=== PATIENT | female | born 1990 | race Caucasian/White ===

== ENCOUNTER 2019-07-07 22:08 | Emergency (ER) | payer BC ==
[2019-07-07 22:32] LABS: BASOPHILS % (AUTO) 0.8 % (0.0-5.0); EOSINOPHILS % (AUTO) 4.8 % (0.0-8.0); HEMATOCRIT 38.4 % (36-48); LYMPHOCYTES % (AUTO) 28.9 % (21.0-51.0); MEAN CORPUSCULAR HEMOGLOBIN 30.8 pg (27.0-33.0); MEAN CORPUSCULAR HGB CONC 33.9 g/dL (32.0-36.0); MONOCYTES % (AUTO) 7.9 % (3.0-13.0); NEUTROPHILS % (AUTO) 57.3 % (40.0-77.0); PLATELET COUNT (AUTO) 225 K/uL (130-400); RED BLOOD CELL COUNT(AUTO) 4.22 MIL/uL (4.00-5.50); RED CELL DISTRIBUTION WIDTH 12.7 % (11.0-15.5); WHITE BLOOD COUNT (AUTO) 10.5 K/uL (4.8-10.8)
[2019-07-07 22:37] LABS: APPEARANCE,URINE Clear (CLEAR); BILIRUBIN,URINE Negative (NEGATIVE); COLOR,URINE Yellow (YELLOW); GLUCOSE, URINE (UA) Negative (NEGATIVE); KETONES,URINE Negative (NEGATIVE); LEUKOCYTE ESTERASE ,URINE Trace (NEGATIVE); NITRATE,URINE Negative (NEGATIVE); OCCULT BLOOD,URINE Negative (NEGATIVE); PROTEIN,URINE Negative (NEGATIVE); UROBILINOGEN,URINE 0.2 mg/dL (0.2-1.0)
[2019-07-07 22:40] LABS: HCG,QUAL RESULT NEGATIVE (NEGATIVE)
[2019-07-07 22:50] LABS: AMPHET/METH SCREEN,URINE NEGATIVE (NEGATIVE); BARBITURATE SCREEN, URINE NEGATIVE (NEGATIVE); BENZODIAZEPINES SCREEN,URINE NEGATIVE (NEGATIVE); CANNABINOID SCREEN,URINE NEGATIVE (NEGATIVE); COCAINE SCREEN,URINE NEGATIVE (NEGATIVE); OPIATE SCREEN,URINE NEGATIVE (NEGATIVE); PHENCYCLIDINE SCREEN,URINE NEGATIVE (NEGATIVE)
[2019-07-07 22:56] LABS: BACTERIA,URINE Rare /HPF (None Seen); RBC,URINE 0-1 /HPF (0-1)
[2019-07-07 22:57] LABS: POTASSIUM 4.1 mmol/L (3.5-5.1)
[2019-07-07 23:01] LABS: ALBUMIN 4.2 g/dL (3.5-5.0); BILIRUBIN,TOTAL 0.1 mg/dL (0.2-1.0); TOTAL PROTEIN, SERUM 7.3 g/dL (6.0-8.3)
== END 2019-07-07 23:54 | disposition home or self-care (01) ==
LOC: EDH 22:08
DX: R07.89 Other chest pain (principal); R55 Syncope and collapse; F32.9 Major depressive disorder, single episode, unspecified; Z88.0 Allergy status to penicillin; Z72.0 Tobacco use
CPT/HCPCS: 36415; 71045; 80053; 80305; 81001; 81025; 82550; 84484; 85025; 93005

== ENCOUNTER 2019-08-19 14:51 | Observation (INO) | payer BC ==
[~2019-08-19] VITALS: Ht 167.6 cm; Wt 89.1 kg
[2019-08-19] MEDS ORDERED: ACETAMINOPHEN EXTRA STRENGTH 500 MG TABLET ONE (15:53)
[2019-08-19] MEDS ORDERED: KETOROLAC TROMETHAMINE 30MG/ML ONE (16:25)
[2019-08-19] MEDS ORDERED: IOHEXOL-350 75 ML VIAL IV ONE (17:11)
[2019-08-19] MEDS ORDERED: SUCRALFATE 1 GM TABLET ONE (18:01)
[2019-08-19] MEDS ORDERED: FAMOTIDINE/PF 20 MG/2 ML VIAL IV ONE (18:01)
[2019-08-19] MEDS ORDERED: MORPHINE SULFATE 4 MG/1ML SYG ONE (19:27)
[2019-08-20] MEDS ORDERED: LACTATED RINGERS 1000ML 1,000 ML IV SCH (00:45)
[2019-08-20] MEDS ORDERED: KETOROLAC TROMETHAMINE 15MG/ML IV PRN (00:45)
[2019-08-20] MEDS ORDERED: ONDANSETRON HCL 4 MG/2 ML VIAL IV PRN (00:45)
[2019-08-20] MEDS ORDERED: NITROGLYCERIN 0.4 MG SL TAB SL PRN (01:00)
[2019-08-20] MEDS ORDERED: KETOROLAC TROMETHAMINE 15MG/ML ONE (01:01)
[2019-08-20] MEDS ORDERED: LACTATED RINGERS 1000ML 1,000 ML IV ONE (01:28)
[2019-08-20 02:42] VITALS: BP 145/79; PULSE 74; RESP 18; TEMP 98.2
[2019-08-20] MEDS ORDERED: LORAZEPAM 2 MG/ML 1 ML VIAL ONE (04:21)
[2019-08-20] MEDS ORDERED: LORAZEPAM 2 MG/ML 1 ML VIAL IVP ONE (04:30)
[2019-08-20 08:30] VITALS: BP 120/71; PULSE 82; RESP 18; TEMP 98
[2019-08-20] MEDS ORDERED: FAMOTIDINE/PF 20 MG/2 ML VIAL IV SCH (09:00)
[2019-08-20] MEDS ORDERED: ASPIRIN 81MG TAB.CHEW PO SCH (09:00)
[2019-08-20 13:40] VITALS: BP 123/72; PULSE 72; RESP 20; TEMP 97.8
--- NOTE | 2019-08-20 14:13 | NUR ---
RD NOTIFICATION Pt admitted with atypical chest pain, abdominal pain. Pt Hx of GERD, depression, 17mos. , breast feeding. Upon visit, Pt reports return of appetite and ate two peanut butter sandwiches from. Pt reports wt loss possibly d/t headaches, not feeling well, decreased appetite. Diet order advanced to [facility]. Pt with painful gassiness, requesting med at time of visit. Pt Obesity Class I (BMI 31.7). Pt with no desire to re-gain wt. Recommend continue GI Soft/[place] Diet order. RD to monitor for signs of malnutrition and PO status. Please notify as additional nutrition concerns arise. Thank you. Addendum: 08/20/19 at 1419 [address] GUZMÁN RD RD Amended: Links added.
[2019-08-20] MEDS ORDERED: PANTOPRAZOLE SODIUM 40 MG TABLET.DR PO SCH (15:00)
[2019-08-20] MEDS ORDERED: PANTOPRAZOLE SODIUM 40 MG TABLET.DR ONE (15:02)
[2019-08-20] MEDS ORDERED: CALCIUM CARBON 500MG CHEW TAB ONE (15:46)
--- NOTE | 2019-08-20 15:55 | NUR ---
PT COMPLAINING OF LEFT SIDED CHEST PAIN THAT RADIATES TO THE MID EPIGASTRIC REGION, PATIENT STATES SHE HAS HAD HAIM TYPE OF PAIN BEFORE WHICH USUALLY RESOLVES WITH A TUMS. CALLED DR. OCASIO STATES OKAY TO ORDER TUMS. DO EKG AND NOTIFY ME OF RESULTS.
--- NOTE | 2019-08-20 16:10 | NUR ---
EKG RESULTS GIVEN TO DR. OCASIO STATES THEY LOOK NORMAL. DR. OCASIO SPOKE WITH PATIENT FOR A CARDIOLOGY CONSULT, PATIENT REFUSED CARDIOLOGY CONSULT AND WISHES TO GO HOME SINCE TUMS HAVE HELP WITH THE RELIEF OF CHEST PAIN.
--- NOTE | 2019-08-20 16:58 | NUR ---
CM NOTE AT BEDSIDE FOR DISCHARGE PLANNING EARLIER. PT VERY TEARFUL, STATES NEVER AWAY FROM HER DAUGHTER - 15 MOS OLD, BREAST FEEDING- STATES MOVES AROUND A LOT- EVERY FEW MONTHS DUE TO HUSBANDS EMPLOYMENT. STATES FMAIY IN [place] AND [place]. STATES NO FRIEND IN AREA, STATED NO PCP. INDP, NO DME, NO HOME PROGRAM. BEING DISCHARGED BECAUSE SHE IS DECLINING FURTHER WORK UP . ENCOURAGE TO MAINTAIN COMUNICATION WITH FRIENDS AND RELATIVES DESPITE TRANSITORY LIFE STYLE, AND SEEK SUPPORT SYSTEM IN THE TOWNS THEY MOVE TO Addendum: 08/20/19 at 1701 by YESENIA CAMPOS RN CM Amended: Links added.
[2019-08-20 17:17] VITALS: BP 121/67; PULSE 67; RESP 18; TEMP 98
--- NOTE | 2019-08-20 19:40 | NUR ---
PT D/C HOME USING TEACH BACK TECHNIQUE RE; FOLLOW UP WITH YOUR PRIMARY DOCTOR IN 2-4 DAYS. FOR TRANSITION OF CARE. FOLLOW UP WITH DR. ISRAEL IN 1-2 WEEKS. CALL PHONE [phone]. NEUROLOGIST. CALL [phone] IF SHORNTESS OF BREATH, CHEST PAIN, DIZZINESS, CONFUSION, NUMBNESS TO ONE SIDE OF YOUR BODY, FACIAL DROOP. WE CHECKED YOU HEART ENZYMES THREE TIMES AND THERE WAS NO SIGNS OF HEART, ATTACK, , WE CHECKED CT OF THE ABDOMEN WHICH WAS NORMAL, , WE DID MRI OF THE BRAIN FOR YOUR HEADACHES AND IT WAS NORMAL, , > D/C MEDICATION INSTRUCTION: <CONTINUE WITH YOUR ACID REFLUX MEDICATIONS PRESCRIBED BY DR. KIMBALL, , SEE YOUR PCP ON FRIDAY> DC FOLLOW UP: <PLEASE FOLLOW UP WITH YOUR PCP ON FRIDAY FOR FOLLOW UP. IF YOU CONTINUE TO, HAVE CHEST PAIN, ASK FOR REFERRAL FOR A PRODUCE WRAPPER, , PLEASE FOLLOW UP WITH DR. KIMBALL SCHEDULED IN 1 WEEK AAOX3, DENIES ANY SOB, DIZZINESS, WEAKNESS NUMBNESS. STATES FEELS GOOD AND WANTS TO GO HOME. IV OUT INTACT, NO BLEEDING, NO SWELLING.
[2019-08-20] MEDS ORDERED: CALCIUM CARBON 500MG CHEW TAB PO SCH (21:00)
== END 2019-08-20 20:00 | disposition home or self-care (01) ==
LOC: EDH 14:51 → EDHIP 08-20 00:40 → INTOOBSV 08-20 00:40 → 3CH 08-20 01:38
PROVIDERS: ADMIT Internal Medicine; ATTEND Internal Medicine
DX: K29.70 Gastritis, unspecified, without bleeding (principal); K44.9 Diaphragmatic hernia without obstruction or gangrene; R07.89 Other chest pain; R51 Headache; K21.9 Gastro-esophageal reflux disease without esophagitis; F32.9 Major depressive disorder, single episode, unspecified; Z88.0 Allergy status to penicillin; Z88.8 Allergy status to other drugs, medicaments and biological substances
CPT/HCPCS: 36415 ×2; 70544 ×2; 70551; 74178; 80053 ×2; 80061; 81001; 81025; 82150; 82550 ×2; 83690; 83874; 84443; 84484 ×3; 85025 ×2; 85378; 85651; 86140; 86677; 93005 ×5; 96374; 96375; 99285; A4600; G0378 ×19; J1885 ×2; J2060; J2270; J3490 ×2; J7120; Q9967

== ENCOUNTER 2019-09-09 22:51 | Emergency (ER) | payer BC ==
[~2019-09-09 22:51] MED LIST: BUPR150T3 PO; FAMO-136 PO; MELA5CAP PO; OMEP40CA13 PO; SUCR1TAB PO
[2019-09-10 00:01] LABS: ABG OXYGEN SATURATION 34.5 % (95.0-99.0); BASE EXCESS,VENOUS BLOOD GAS -0.3 (-2.0-3.0); HCO3,VENOUS BLOOD GAS 26.7 (21.0-28.0); PCO2,VENOUS BLOOD GAS 53 (32-45); PH,VENOUS BLOOD GAS 7.322 (7.350-7.450)
[2019-09-10 00:17] LABS: BASOPHILS % (AUTO) 0.4 % (0.0-5.0); EOSINOPHILS % (AUTO) 0.6 % (0.0-8.0); HEMATOCRIT 39.8 % (36-48); LYMPHOCYTES % (AUTO) 12.4 % (21.0-51.0); MEAN CORPUSCULAR HEMOGLOBIN 30.9 pg (27.0-33.0); MEAN CORPUSCULAR HGB CONC 33.7 g/dL (32.0-36.0); MEAN CORPUSCULAR VOLUME 91.7 fL (79-99); MONOCYTES % (AUTO) 5.1 % (3.0-13.0); NEUTROPHILS % (AUTO) 81.3 % (40.0-77.0); PLATELET COUNT (AUTO) 243 K/uL (130-400); RED BLOOD CELL COUNT(AUTO) 4.34 MIL/uL (4.00-5.50); RED CELL DISTRIBUTION WIDTH 12.4 % (11.0-15.5); WHITE BLOOD COUNT (AUTO) 12.9 K/uL (4.8-10.8)
[2019-09-10] MEDS ORDERED: KETOROLAC TROMETHAMINE 30MG/ML ONE (00:19)
[2019-09-10] MEDS ORDERED: METOCLOPRAMIDE 10 MG/2 ML VIAL ONE (00:19)
[2019-09-10] MEDS ORDERED: LIDOCAINE 5% TOPICAL PATCH TP ONE (00:19)
[2019-09-10] MEDS ORDERED: DiphenhydrAMINE HCL 50 MG/ML VIAL ONE (00:22)
[2019-09-10 00:26] LABS: CREATININE 0.9 mg/dL (0.5-1.5); POTASSIUM 3.8 mmol/L (3.5-5.1)
[2019-09-10 00:38] LABS: ALBUMIN 4.7 g/dL (3.5-5.0); BILIRUBIN,TOTAL 0.3 mg/dL (0.2-1.0); THYROID STIMULATING HORMONE 0.82 uIU/mL (0.36-3.74); TOTAL PROTEIN, SERUM 8.3 g/dL (6.0-8.3)
== END 2019-09-10 01:18 | disposition home or self-care (01) ==
LOC: EDH 22:51
DX: G44.209 Tension-type headache, unspecified, not intractable (principal); M62.830 Muscle spasm of back; F32.9 Major depressive disorder, single episode, unspecified; F41.9 Anxiety disorder, unspecified; K21.9 Gastro-esophageal reflux disease without esophagitis; Z98.890 Other specified postprocedural states; Z88.0 Allergy status to penicillin; Z88.4 Allergy status to anesthetic agent
CPT/HCPCS: 36415; 36600; 70450; 80050; 81025; 82803; 83735; 96361; 96374; 96375; 99284; J1200; J1885; J2765; 80053; 84443; 85025